=== PATIENT | female | born 1980 | race Hispanic/Latino ===

== ENCOUNTER 2017-09-26 23:01 | Inpatient (IN) | payer MEDICARE ==
[~2017-09-26] VITALS: Ht 154.9 cm; Wt 95.7 kg
[2017-09-26] MEDS ORDERED: ACETAMINOPHEN 325 MG TAB ONE (23:48)
[2017-09-26] MEDS ORDERED: VANCOMYCIN 1GM+NS 250ML 250 ML IV ONE (23:48)
[2017-09-26] MEDS ORDERED: SODIUM CHLORIDE 0.9% 1000ML 3,000 ML IV ONE (23:48)
[2017-09-27 00:09] LABS: BASOPHILS % (AUTO) 0.4 % (0.0-5.0); EOSINOPHILS % (AUTO) 0.2 % (0.0-8.0); HEMATOCRIT 39.4 % (36-48); LYMPHOCYTES % (AUTO) 13.2 % (21.0-51.0); MEAN CORPUSCULAR HEMOGLOBIN 27.4 pg (27.0-33.0); MEAN CORPUSCULAR HGB CONC 34.7 g/dL (32.0-36.0); MEAN CORPUSCULAR VOLUME 78.9 fL (79-99); MONOCYTES % (AUTO) 8.5 % (3.0-13.0); NEUTROPHILS % (AUTO) 77.7 % (40.0-77.0); PLATELET COUNT (AUTO) 270 K/uL (130-400); RED BLOOD CELL COUNT(AUTO) 4.98 MIL/uL (4.00-5.50); RED CELL DISTRIBUTION WIDTH 13.4 % (11.0-15.5); WHITE BLOOD COUNT (AUTO) 9.5 K/uL (4.8-10.8)
[2017-09-27 00:18] LABS: CARBON DIOXIDE 22 mmol/L (21-32); CHLORIDE 99 mmol/L (101-111); GLOMERULAR FILTR. RATE CALC 66 mL/min (>60); GLUCOSE,RANDOM 270 mg/dL (70-105); POTASSIUM 3.1 mmol/L (3.5-5.1); SODIUM SERUM 133 mmol/L (136-145); UREA NITROGEN, BLOOD 8 mg/dL (7-18)
[2017-09-27 00:22] LABS: INR 1.02 (0.85-1.15); PARTIAL THROMBOPLASTIN TIME 27.5 SEC (26.3-35.5); PROTHROMBIN TIME 10.7 SEC (9.6-11.6)
[2017-09-27 00:33] LABS: ALANINE AMINOTRANSFERASE 59 U/L (12-78); ALBUMIN 3.2 g/dL (3.5-5.0); ASPARTATE AMINOTRANSFERASE 31 U/L (10-37); BILIRUBIN,TOTAL 0.6 mg/dL (0.2-1.0); CREATINE KINASE MB < 0.5 ng/mL (0.5-3.6); CREATINE KINASE, TOTAL 32 U/L (21-232); MYOGLOBIN 17 ng/mL (10-92); TOTAL PROTEIN, SERUM 7.3 g/dL (6.0-8.3); TROPONIN I < 0.04 ng/mL (0.00-0.06)
[2017-09-27 01:02] LABS: APPEARANCE,URINE Cloudy (CLEAR); BILIRUBIN,URINE Negative (NEGATIVE); COLOR,URINE Yellow (YELLOW); GLUCOSE, URINE (UA) >=1000 mg/dL (NEGATIVE); KETONES,URINE Trace mg/dL (NEGATIVE); LEUKOCYTE ESTERASE ,URINE Small (NEGATIVE); NITRATE,URINE Negative (NEGATIVE); OCCULT BLOOD,URINE Trace (NEGATIVE); PH,URINE 5.5 (5.0-8.0); PROTEIN,URINE Negative (NEGATIVE); UROBILINOGEN,URINE 0.2 mg/dL (0.2-1.0)
[2017-09-27 01:26] LABS: BACTERIA,URINE Few /HPF (None Seen); MUCUS,URINE Moderate LPF (None Seen); SQUAMOUS EPITHELIAL CELL,UR Moderate /LPF (0-2)
[2017-09-27] MEDS ORDERED: AMPICILLIN SODIUM/SULBACTAM NA 1.5GM VIAL ONE ×4 (02:21→23:47)
[2017-09-27] MEDS ORDERED: DiphenhydrAMINE HCL 50 MG/ML VIAL ONE ×2 (03:11→08:31)
[2017-09-27 04:57] LABS: BASOPHILS % (AUTO) 0.2 % (0.0-5.0); EOSINOPHILS % (AUTO) 0.2 % (0.0-8.0); HEMATOCRIT 33.4 % (36-48); MEAN CORPUSCULAR HEMOGLOBIN 28.4 pg (27.0-33.0); MEAN CORPUSCULAR HGB CONC 35.6 g/dL (32.0-36.0); MEAN CORPUSCULAR VOLUME 79.7 fL (79-99); MONOCYTES % (AUTO) 8.8 % (3.0-13.0); NEUTROPHILS % (AUTO) 72.8 % (40.0-77.0); PLATELET COUNT (AUTO) 211 K/uL (130-400); RED BLOOD CELL COUNT(AUTO) 4.19 MIL/uL (4.00-5.50); RED CELL DISTRIBUTION WIDTH 13.5 % (11.0-15.5); WHITE BLOOD COUNT (AUTO) 7.6 K/uL (4.8-10.8)
[2017-09-27 05:15] LABS: CREATININE 0.8 mg/dL (0.5-1.5)
[2017-09-27] MEDS ORDERED: POTASSIUM CHLORIDE 20 MEQ ERTAB PO ONE ×3 (06:15→10:16)
[2017-09-27] MEDS ORDERED: SODIUM CHLORIDE 0.9% 250 ML IV ONE (08:21)
[2017-09-27] MEDS ORDERED: ACETAMINOPHEN 325 MG TAB ONE ×2 (08:32→16:26)
[2017-09-27] MEDS ORDERED: OSELTAMIVIR PHOSPHATE 75 MG CAP ONE (08:50)
[2017-09-27] MEDS: OSELTAMIVIR PHOSPHATE 75 MG CAP PO SCH ×2 (09:00→21:56)
[2017-09-27] MEDS ORDERED: INSULIN HUMULIN R 100 UNIT/ML 3ML ONE ×2 (11:06→17:22)
[2017-09-27] MEDS ORDERED: IPRATROPIUM/ALBUTEROL SULFATE 3 ML SOLUTION IH ONE ×3 (13:30→23:24)
[2017-09-27 19:15] VITALS: BP 100/59
[2017-09-27] MEDS ORDERED: SODIUM CHLORIDE 0.9% 1000ML 1,000 ML IV SCH (20:15)
[2017-09-27] MEDS ORDERED: FENO48TA15 PO (22:57)
[2017-09-27] MEDS ORDERED: FLUT1DIS3 IH (22:57)
[2017-09-27] MEDS ORDERED: LISI10TA7 PO (22:57)
[2017-09-27] MEDS ORDERED: ALBU8.5H8 IH (22:57)
[2017-09-27] MEDS ORDERED: DULO60CA44 PO (22:57)
[2017-09-27] MEDS ORDERED: METF10004 PO (22:57)
[2017-09-27] MEDS ORDERED: ESOM40CA PO (22:57)
[2017-09-27] MEDS ORDERED: INSU100V12 SQ (22:57)
[2017-09-27 23:10] VITALS: BP 112/76
[2017-09-27] MEDS ORDERED: CLONIDINE HCL 0.1 MG TABLET PO PRN (23:15)
[2017-09-27] MEDS ORDERED: DiphenhydrAMINE HCL 50 MG/ML VIAL IV PRN (23:15)
[2017-09-27] MEDS ORDERED: POTASSIUM CHLORIDE 10% ELIXIR 20 MEQ/15 ML UDCUP PO PRN (23:15)
[2017-09-27] MEDS ORDERED: ZOLPIDEM TARTRATE 5 MG TAB PO PRN (23:15)
[2017-09-27] MEDS ORDERED: POTASSIUM CHLORIDE 20MEQ/100ML 100 ML IV PRN (23:15)
[2017-09-27] MEDS ORDERED: DEXTROSE 50%-WATER 50 ML DISP.SYRIN IV PRN (23:15)
[2017-09-27] MEDS ORDERED: ONDANSETRON HCL 4 MG/2 ML VIAL IVP PRN (23:15)
[2017-09-27] MEDS ORDERED: GLUCAGON 1MG KIT 1 MG ML IM PRN (23:15)
[2017-09-27] MEDS ORDERED: ACETAMINOPHEN 325 MG TAB PO PRN (23:15)
[2017-09-27] MEDS ORDERED: LIDOCAINE HCL-MPF 1% 2ML VIAL IVP PRN (23:15)
[2017-09-27] MEDS ORDERED: GUAIFENESIN SUGAR-FREE 100 MG/5 ML UDCUP PO PRN (23:45)
[2017-09-27] MEDS ORDERED: LACTULOSE 20 GM/30 ML UDCUP PO PRN (23:45)
[2017-09-27] MEDS ORDERED: MAG HYDROX/AL HYDROX/SIMETH ES 30 ML SUSP UDCUP PO PRN (23:45)
[2017-09-27] MEDS ORDERED: IPRATROPIUM/ALBUTEROL SULFATE 3 ML SOLUTION IH PRN (23:45)
[2017-09-27] MEDS ORDERED: NITROGLYCERIN 0.4 MG SL TAB SL PRN (23:45)
[2017-09-28] MEDS: UNASYN 3GM+NS 100ML 100 ML IV SCH ×2 (00:37→08:21)
[2017-09-28 03:30] VITALS: BP 136/72
[2017-09-28 03:57] LABS: HEMATOCRIT 34.8 % (36-48); MEAN CORPUSCULAR HEMOGLOBIN 28.1 pg (27.0-33.0); MEAN CORPUSCULAR HGB CONC 35.2 g/dL (32.0-36.0); MEAN CORPUSCULAR VOLUME 79.8 fL (79-99); PLATELET COUNT (AUTO) 210 K/uL (130-400); RED BLOOD CELL COUNT(AUTO) 4.35 MIL/uL (4.00-5.50); RED CELL DISTRIBUTION WIDTH 13.7 % (11.0-15.5); WHITE BLOOD COUNT (AUTO) 7.1 K/uL (4.8-10.8)
[2017-09-28 04:23] LABS: CREATININE 0.9 mg/dL (0.5-1.5); POTASSIUM 3.4 mmol/L (3.5-5.1)
[2017-09-28] MEDS: IPRATROPIUM/ALBUTEROL SULFATE 3 ML SOLUTION IH SCH ×4 (06:14→23:56)
[2017-09-28 07:00] VITALS: BP 115/73
[2017-09-28] MEDS: OSELTAMIVIR PHOSPHATE 75 MG CAP PO SCH ×2 (08:21→20:49)
[2017-09-28] MEDS: INSULIN HUMULIN R 100 UNIT/ML 3ML SQ SCH ×4 (08:23→21:28)
[2017-09-28] MEDS ORDERED: BENZOCAINE/MENTH/CETYLPYRD CL 1 EACH LOZENGE MM PRN (11:15)
[2017-09-28] MEDS ORDERED: AMPICILLIN SODIUM IV SCH (12:00)
[2017-09-28] MEDS ORDERED: SULBACTAM NA IV SCH (12:00)
[2017-09-28] MEDS ORDERED: DEXTROSE 5% IV SCH (12:00)
[2017-09-28] MEDS ORDERED: WATER IV SCH (12:00)
[2017-09-28 12:41] VITALS: BP 119/78
[2017-09-28 16:00] VITALS: BP 119/70
[2017-09-28] MEDS: WATER IV SCH ×2 (17:12→20:48)
[2017-09-28] MEDS: DEXTROSE 5% IV SCH ×2 (17:12→20:48)
[2017-09-28] MEDS: AMPICILLIN SODIUM IV SCH ×2 (17:12→20:48)
[2017-09-28] MEDS: SULBACTAM NA IV SCH ×2 (17:12→20:48)
[2017-09-28 19:10] VITALS: BP 114/75
[2017-09-28] MEDS: GUAIFENESIN/DEXTROMETHORPHAN 1 EACH TAB.SR.12H PO SCH (20:49)
[2017-09-28 23:10] VITALS: BP 118/69
[2017-09-29] MEDS: DEXTROSE 5% IV SCH ×2 (03:09→08:34)
[2017-09-29] MEDS: SULBACTAM NA IV SCH ×2 (03:09→08:34)
[2017-09-29] MEDS: WATER IV SCH ×2 (03:09→08:34)
[2017-09-29] MEDS: AMPICILLIN SODIUM IV SCH ×2 (03:09→08:34)
[2017-09-29 03:10] VITALS: BP_SYST 106; BP_SYST 123; BP_DIAS 75; BP_DIAS 79
[2017-09-29 03:46] LABS: CREATININE 0.7 mg/dL (0.5-1.5); POTASSIUM 3.3 mmol/L (3.5-5.1)
[2017-09-29 03:47] LABS: HEMATOCRIT 35.8 % (36-48); MEAN CORPUSCULAR HEMOGLOBIN 27.8 pg (27.0-33.0); MEAN CORPUSCULAR HGB CONC 35.2 g/dL (32.0-36.0); MEAN CORPUSCULAR VOLUME 78.8 fL (79-99); NUCLEATED RED BLOOD CELLS 0.1 % (0.0-0.19); PLATELET COUNT (AUTO) 248 K/uL (130-400); RED BLOOD CELL COUNT(AUTO) 4.54 MIL/uL (4.00-5.50); RED CELL DISTRIBUTION WIDTH 13.5 % (11.0-15.5); WHITE BLOOD COUNT (AUTO) 7.2 K/uL (4.8-10.8)
[2017-09-29 04:43] LABS: BAND NEUTROPHILS % (MANUAL) 17 % (0-2); EOSINOPHILS % (MANUAL) 1 % (1-6); LYMPHOCYTES % (MANUAL) 17 % (22-44); MAN.DIFF COMMENT-IMPRESSION MANUAL DIFFERENTIAL; MONOCYTES % (MANUAL) 6 % (2-9); SEGMENTED NEUTROPHILS % 59 % (40-70)
[2017-09-29 04:44] LABS: PLATELET MORPHOLOGY COMMENT ADEQUATE
[2017-09-29] MEDS: IPRATROPIUM/ALBUTEROL SULFATE 3 ML SOLUTION IH SCH ×3 (06:00→11:08)
[2017-09-29] MEDS: INSULIN HUMULIN R 100 UNIT/ML 3ML SQ SCH ×2 (06:51→12:47)
[2017-09-29 08:00] VITALS: BP 110/68
[2017-09-29] MEDS: GUAIFENESIN/DEXTROMETHORPHAN 1 EACH TAB.SR.12H PO SCH (08:34)
[2017-09-29] MEDS: OSELTAMIVIR PHOSPHATE 75 MG CAP PO SCH (08:34)
[2017-09-29] MEDS: POTASSIUM CHLORIDE 20 MEQ ERTAB PO PRN ×3 (10:31→14:48)
[2017-09-29] MEDS ORDERED: COMPOUND IV MISC 1 EACH IVSOLN MISC PRN (11:45)
[2017-09-29 12:00] VITALS: BP 130/85
[2017-09-29] MEDS ORDERED: LEVOFLOXACIN 500 MG TABLET PO SCH (16:00)
[2017-09-29] MEDS ORDERED: MEROPENEM 1GM IVPB PREMIXED 1 GM IV SCH (16:00)
[2017-09-29] MEDS ORDERED: FLUCONAZOLE 100 MG TAB PO SCH (16:00)
[2017-09-29] MEDS ORDERED: AMPICILLIN IV SCH (18:00)
[2017-09-29] MEDS ORDERED: SULBACTAM IV SCH (18:00)
== END 2017-09-29 16:45 | disposition home or self-care (01) | DRG 872 ==
LOC: EDH 23:01 → EDHIP 23:28 → UNDOADMIN 23:47 → EDHIP 09-27 00:10 → 3BH 09-27 19:33
PROVIDERS: ADMIT Family Medicine; ATTEND Family Medicine
DX: A41.9 Sepsis, unspecified organism (principal); E11.65 Type 2 diabetes mellitus with hyperglycemia; J10.1 Influenza due to other identified influenza virus with other respiratory manifestations; J20.9 Acute bronchitis, unspecified; E78.5 Hyperlipidemia, unspecified; G89.4 Chronic pain syndrome; I10 Essential (primary) hypertension; Z83.3 Family history of diabetes mellitus; Z88.5 Allergy status to narcotic agent; Z91.010 Allergy to peanuts
CPT/HCPCS: 36415; 71045; 80048; 80053; 81001; 81025; 82550; 82553; 82948; 83605; 83874; 84484; 85025; 85027; 85610; 85730; 87040; 87088; 87804; 93005; 94640; 94664; J0295; J1200; J1815; J2405; J3370; J7030; J7060

== ENCOUNTER → 2018-11-02 | Outpatient (CLI) | payer MEDICARE ==
[~2018-11-02] VITALS: Ht 161.3 cm; Wt 94.1 kg
[~2018-11-02] MED LIST: ALBU8.5H8 IH; ALPR0.5T PO; ASPI-555 PO; DULO60CA44 PO; ESOM40CA PO; FENO48TA15 PO; FLUT1DIS3 IH; HYDR-4030 PO; HYDR-4453 PO; INSREG SQ; INSU100V12 SQ; ISOS60TA4 PO; LISI10TA7 PO; METF-446 PO; METO100T14 PO; PREG75 PO; VENL-63 PO
[2018-11-02 12:12] VITALS: BP 154/78
[2018-11-02 12:23] LABS: BASOPHILS % (AUTO) 0.3 % (0.0-5.0); LYMPHOCYTES % (AUTO) 19.3 % (21.0-51.0); MEAN CORPUSCULAR HEMOGLOBIN 26.1 pg (27.0-33.0); MEAN CORPUSCULAR HGB CONC 33.3 g/dL (32.0-36.0); MEAN CORPUSCULAR VOLUME 78.3 fL (79-99); MONOCYTES % (AUTO) 4.9 % (3.0-13.0); NEUTROPHILS % (AUTO) 74.5 % (40.0-77.0); NUCLEATED RED BLOOD CELLS 0.1 % (0.0-0.19); PLATELET COUNT (AUTO) 302 K/uL (130-400); RED BLOOD CELL COUNT(AUTO) 5.36 MIL/uL (4.00-5.50); RED CELL DISTRIBUTION WIDTH 13.8 % (11.0-15.5); WHITE BLOOD COUNT (AUTO) 10.3 K/uL (4.8-10.8)
[2018-11-02 12:36] LABS: CREATININE 0.7 mg/dL (0.5-1.5); POTASSIUM 3.6 mmol/L (3.5-5.1)
[2018-11-02 12:37] LABS: APPEARANCE,URINE Clear (CLEAR); BILIRUBIN,URINE Negative (NEGATIVE); COLOR,URINE Yellow (YELLOW); GLUCOSE, URINE (UA) >=1000 mg/dL (NEGATIVE); KETONES,URINE 15 mg/dL (NEGATIVE); LEUKOCYTE ESTERASE ,URINE Negative (NEGATIVE); NITRATE,URINE Negative (NEGATIVE); OCCULT BLOOD,URINE Nonhemolyzed Trace (NEGATIVE); PROTEIN,URINE Negative (NEGATIVE); UROBILINOGEN,URINE 0.2 mg/dL (0.2-1.0)
[2018-11-02 12:38] LABS: INR 0.9 (0.85-1.15); PARTIAL THROMBOPLASTIN TIME 28.2 SEC (26.3-35.5); PROTHROMBIN TIME 9.5 SEC (9.6-11.6)
--- NOTE | 2018-11-02 12:57 | NUR ---
NOTE PT STATES SHE IS GOING TO BE ADMITED TO [facility] TODAY FOR I&D TO RIGHT ARM PIT. ASSESSED AREA , REDDNESS WAS NOTED NO OPEN WOUND. PATIENT DID STATE SHE HAD FEVER OVER THE WEEKEND AND HAS ALOT OF PAIN. SHE HAS DEVELOPED THIS ABCESS IN THE PAST. SHE RECIEVED VANCOMYCIN INFUSION BY DR BOONE LAST WEEK FOR THIS DEVELOPING INTERNAL ABCESS, BUT ACCORDING TO DR SAGASTUME IT NEEDS TO TAKEN TO SURGERY SO THAT IS THE REASON HE IS ADMITTING HER TODAY IN [facility] [place],ACCORDING TO PATIENT SHE SHOULD BE DISCHARGED BY MONDAY. WILL NOTIFY DR COLIN OF THIS SITUATION.
[2018-11-02 13:17] LABS: BACTERIA,URINE Rare /HPF (None Seen); RBC,URINE 0-1 /HPF (0-1); SQUAMOUS EPITHELIAL CELL,UR Few /HPF (0-2); YEAST,URINE BUDDING Few /HPF (None Seen)
--- NOTE | 2018-11-02 14:15 | NUR ---
NOTE SPOKE TO GENIE REGARDING PATIENT SITUATION. SHE IS TO BE CANCELLED FOR PROCEDURE. SHE WILL HAVE OFFICE SCHEDULE HER FOLLOW UP IN OFFICE FOR ANOTHER SCHEDULE DATE FOR PROCEDURE
== END ==
LOC: DAH 10:00 → EDSTATUS 11:00
PROVIDERS: ATTEND Internal Medicine Cardiovascular Disease
DX: Z01.818 Encounter for other preprocedural examination (principal); R94.39 Abnormal result of other cardiovascular function study
CPT/HCPCS: 36415; 71045; 80048; 81001; 84703; 85025; 85610; 85730; 93005

== ENCOUNTER 2018-12-25 06:21 | Day surgery (SDC) | payer MEDICARE ==
[2018-12-21 15:45] VITALS: BP 140/77
[2018-12-21 16:03] LABS: BASOPHILS % (AUTO) 0.4 % (0.0-5.0); EOSINOPHILS % (AUTO) 1.5 % (0.0-8.0); HEMATOCRIT 40.3 % (36-48); LYMPHOCYTES % (AUTO) 22.6 % (21.0-51.0); MEAN CORPUSCULAR HEMOGLOBIN 26.4 pg (27.0-33.0); MEAN CORPUSCULAR HGB CONC 33.6 g/dL (32.0-36.0); MEAN CORPUSCULAR VOLUME 78.7 fL (79-99); MONOCYTES % (AUTO) 5.6 % (3.0-13.0); NEUTROPHILS % (AUTO) 69.9 % (40.0-77.0); PLATELET COUNT (AUTO) 333 K/uL (130-400); RED BLOOD CELL COUNT(AUTO) 5.12 MIL/uL (4.00-5.50); RED CELL DISTRIBUTION WIDTH 14.5 % (11.0-15.5); WHITE BLOOD COUNT (AUTO) 9.9 K/uL (4.8-10.8)
[2018-12-21 16:04] LABS: APPEARANCE,URINE Clear (CLEAR); BILIRUBIN,URINE Negative (NEGATIVE); COLOR,URINE Yellow (YELLOW); GLUCOSE, URINE (UA) 500 mg/dL (NEGATIVE); KETONES,URINE Trace mg/dL (NEGATIVE); LEUKOCYTE ESTERASE ,URINE Negative (NEGATIVE); NITRATE,URINE Negative (NEGATIVE); OCCULT BLOOD,URINE Negative (NEGATIVE); PROTEIN,URINE Negative (NEGATIVE); UROBILINOGEN,URINE 0.2 mg/dL (0.2-1.0)
[2018-12-21 16:13] LABS: BACTERIA,URINE Few /HPF (None Seen); RBC,URINE None Seen /HPF (0-1); SQUAMOUS EPITHELIAL CELL,UR 0-2 /HPF (0-2); TRICHOMONAS,URINE Few /LPF (None Seen); WBC,URINE 0-1 /HPF (0-1); YEAST,URINE BUDDING Few /HPF (None Seen)
[2018-12-21 16:19] LABS: CREATININE 0.8 mg/dL (0.5-1.5); POTASSIUM 3.8 mmol/L (3.5-5.1)
[2018-12-21 16:20] LABS: INR 0.95 (0.85-1.15); PARTIAL THROMBOPLASTIN TIME 27.8 SEC (26.3-35.5)
--- NOTE | 2018-12-24 14:17 | NUR ---
CALLED GENIE BLANKENSHIP [facility] TO ADVISED ABOUT THE URINE WITH FEW BACTERIA, YEAST BUDDING , TRICHOMONAS. GENIE BLANKENSHIP ORDERD A REPEAT FOR UA AND CULTURE THE DAY OF PROCEDURE AND SHE ASKED ME TO SEND UA RESULTS TO THE OFFICE TO BE REVIEWED. FAXED TO OFFICE CONFIRMED BY CHYNA COLIN OFFICE.
[~2018-12-25] VITALS: Ht 160 cm; Wt 94.5 kg
[~2018-12-25 06:21] MED LIST changes: -ALBU8.5H8 IH; -ALPR0.5T PO; +BUME1TAB12 PO; +BUPR300T54 PO; +DIPH25CA7 PO; +DIPHEN/ATROPINE PO; -DULO60CA44 PO; -ESOM40CA PO; -FENO48TA15 PO; -HYDR-4030 PO; -HYDR-4453 PO; +HYDROMORPHINE PO; -INSREG SQ; +INSU100I21 SQ; -INSU100V12 SQ; -LISI10TA7 PO; +LISI40TA4 PO; -METO100T14 PO; +METO50TA18 PO; +NITR0.4T50 SL; +ONDA4TAB10 PO; +ROSU10TA27 PO; +SODIUM CHLORIDE 0.9% 500ML 500 ML IV SCH; +TRAZ150T79 PO; +[UNRECOGNIZED DRUG - OTHER] PO
[2018-12-25 06:39] VITALS: BP 123/75
[2018-12-25] MEDS ORDERED: SODIUM CHLORIDE 0.9% 1000ML 1,000 ML IV ONE (07:19)
[2018-12-25 07:47] LABS: APPEARANCE,URINE Clear (CLEAR); BILIRUBIN,URINE Negative (NEGATIVE); GLUCOSE, URINE (UA) Negative (NEGATIVE); KETONES,URINE Negative (NEGATIVE); LEUKOCYTE ESTERASE ,URINE Negative (NEGATIVE); NITRATE,URINE Negative (NEGATIVE); OCCULT BLOOD,URINE Negative (NEGATIVE); PROTEIN,URINE Trace mg/dL (NEGATIVE)
[2018-12-25 07:49] LABS: COLOR,URINE YELLOW (YELLOW)
[2018-12-25 08:05] LABS: BACTERIA,URINE Rare /HPF (None Seen); RBC,URINE None Seen /HPF (0-1); WBC,URINE 0-1 /HPF (0-1); YEAST,URINE BUDDING Few /HPF (None Seen)
[2018-12-25 12:00] VITALS: BP 115/70
[2018-12-25 16:00] VITALS: BP 114/69
[2018-12-25] MEDS ORDERED: NITROGLYCERIN 5 MG/ML 10 ML VIAL IV ONE (16:21)
[2018-12-25] MEDS ORDERED: IOHEXOL 350 MG/ML 100ML INFUS..BTL IV ONE (16:21)
[2018-12-25] MEDS ORDERED: IOHEXOL-350 50ML VIAL IV ONE (16:21)
[2018-12-25] MEDS ORDERED: IOHEXOL-350 75 ML VIAL IV ONE (16:22)
[2018-12-25] MEDS ORDERED: LIDOCAINE HCL 2% 20ML ONE (16:22)
[2018-12-25] MEDS ORDERED: MIDAZOLAM HCL 1 MG/ML 2ML VIAL ONE ×2 (17:14→17:36)
[2018-12-25] MEDS ORDERED: LIDOCAINE HCL 2% VISCOUS 15 ML UDCUP ONE (18:02)
[2018-12-25] MEDS ORDERED: MAG HYDROX/AL HYDROX/SIMETH ES 30 ML SUSP UDCUP ONE (18:02)
[2018-12-25] MEDS ORDERED: SODIUM CHLORIDE 0.9% 1000ML 1,000 ML IV SCH (18:17)
[2018-12-25] MEDS ORDERED: GLUCAGON 1MG KIT 1 MG ML IM PRN (18:30)
[2018-12-25] MEDS ORDERED: DEXTROSE 50%-WATER 50 ML DISP.SYRIN IV PRN (18:30)
--- NOTE | 2018-12-25 18:45 | NUR ---
RECEIVED FROM REHAB AIDE VIA BED ACCOMPANIED BY Shan BOSTON, RN AND Sean RAMON RN. AAOX3, RESP.'S EVEN AND UNLABORED. DENIES ANY CURRENT SOB, DENIES ANY CURRENT PAIN. RIGHT GROIN WITH LIGHT DRSG IN PLACE, D/I; AREA SOFT, NO ECCHYMOSIS OR HEMATOMA NOTED. FEET WARM, PP'S (+) BILATERALLY. INSTRUCTED ON STRICT BR, VERBALIZED UNDERSTANDING. BED LOW, SIDE RAILS UP X3. CALL LIGHT WITHIN REACH, VERBALIZED ABILITY TO USE.
[2018-12-25] MEDS ORDERED: INSULIN HUMULIN R 100 UNIT/ML 3ML SQ SCH (21:00)
== END 2018-12-25 22:09 | disposition home or self-care (01) ==
LOC: DAH 06:21
PROVIDERS: ATTEND Internal Medicine Cardiovascular Disease
DX: I25.118 Atherosclerotic heart disease of native coronary artery with other forms of angina pectoris (principal); E78.2 Mixed hyperlipidemia; E11.9 Type 2 diabetes mellitus without complications; I10 Essential (primary) hypertension; J45.909 Unspecified asthma, uncomplicated; R06.02 Shortness of breath; Z79.84 Long term (current) use of oral hypoglycemic drugs; Z79.899 Other long term (current) drug therapy; Z79.4 Long term (current) use of insulin; Z79.01 Long term (current) use of anticoagulants; G47.33 Obstructive sleep apnea (adult) (pediatric); E66.01 Morbid (severe) obesity due to excess calories; F41.9 Anxiety disorder, unspecified; Z98.890 Other specified postprocedural states; Z82.49 Family history of ischemic heart disease and other diseases of the circulatory system; Z68.38 Body mass index [BMI] 38.0-38.9, adult
CPT/HCPCS: 36415; 71045; 80048; 81001 ×2; 82948 ×2; 84703; 85025; 85610; 85730; 87088; 93005; 93458; A4606; C1894; J1644; J2250 ×2; J3490 ×2; J7030; Q9965; Q9967 ×2; 99156; 99157

== ENCOUNTER 2021-12-27 18:07 | Inpatient (IN) | payer MEDICARE ==
[~2021-12-27] VITALS: Ht 160 cm; Wt 101.2 kg
[~2021-12-27 18:07] MED LIST changes: -ASPI-555 PO; +ASPI-556 PO; -BUME1TAB12 PO; +BUME1TAB6 PO; +BUPR-317 PO; -BUPR300T54 PO; +DIPH25CA53 PO; -DIPH25CA7 PO; -ISOS60TA4 PO; +ISOS60TA77 PO; -LISI40TA4 PO; +LISI40TA9 PO; -ROSU10TA27 PO; +ROSU10TA28 PO; -SODIUM CHLORIDE 0.9% 500ML 500 ML IV SCH
[2021-12-27 19:41] LABS: BASOPHILS % (AUTO) 0.3 % (0.0-5.0); EOSINOPHILS % (AUTO) 1.2 % (0.0-8.0); HEMATOCRIT 39.7 % (36-48); MEAN CORPUSCULAR HEMOGLOBIN 23.8 pg (27.0-33.0); MEAN CORPUSCULAR HGB CONC 31.5 g/dL (32.0-36.0); MEAN CORPUSCULAR VOLUME 75.6 fL (79-99); MONOCYTES % (AUTO) 5.4 % (3.0-13.0); NEUTROPHILS % (AUTO) 72.7 % (40.0-77.0); PLATELET COUNT (AUTO) 388 K/uL (130-400); RED BLOOD CELL COUNT(AUTO) 5.25 MIL/uL (4.00-5.50); RED CELL DISTRIBUTION WIDTH 14.6 % (11.0-15.5); WHITE BLOOD COUNT (AUTO) 12.7 K/uL (4.8-10.8)
[2021-12-27 19:56] LABS: INR 0.96 (0.85-1.15); PROTHROMBIN TIME 10.5 SEC (9.6-11.6)
[2021-12-27 19:57] LABS: CREATININE 0.7 mg/dL (0.5-1.5); PARTIAL THROMBOPLASTIN TIME 25.8 SEC (26.3-35.5); POTASSIUM 3.9 mmol/L (3.5-5.1)
[2021-12-27 20:01] LABS: ALBUMIN 3.8 g/dL (3.5-5.0); BILIRUBIN,TOTAL 0.4 mg/dL (0.2-1.0); TOTAL PROTEIN, SERUM 8.1 g/dL (6.0-8.3)
[2021-12-27] MEDS: 0.9%NACL 1000ML 1,000 ML IV SCH (20:20)
[2021-12-27] MEDS: CEFAZOLIN SODIUM 1 GM VIAL IVP SCH ×2 (20:21→21:39)
[2021-12-27] MEDS ORDERED: DiphenhydrAMINE HCL 50 MG/ML VIAL ONE (21:25)
[2021-12-27] MEDS: DiphenhydrAMINE HCL 50 MG/ML VIAL IV SCH (21:38)
[2021-12-27] MEDS ORDERED: FAMO-136 PO (22:28)
[2021-12-27] MEDS ORDERED: ROSU10TA28 PO (22:28)
[2021-12-27] MEDS ORDERED: LOSA100T58 PO (22:28)
[2021-12-27 23:15] VITALS: BP 141/74
[2021-12-28] MEDS: HYDROMORPHONE 1 MG INJ IVP PRN ×5 (00:11→20:54)
[2021-12-28] MEDS: ONDANSETRON 4MG INJ IVP PRN ×4 (00:11→20:53)
[2021-12-28 04:00] VITALS: BP 115/65
[2021-12-28] MEDS: CEFAZOLIN SODIUM 1 GM VIAL IVP SCH ×3 (06:21→17:53)
[2021-12-28] MEDS: DiphenhydrAMINE HCL 50 MG/ML VIAL IV SCH ×3 (06:21→17:57)
[2021-12-28 07:30] VITALS: BP 121/68
[2021-12-28 11:00] VITALS: BP 149/78
[2021-12-28] MEDS: 0.9%NACL 1000ML 1,000 ML IV SCH (15:05)
[2021-12-28 16:00] VITALS: BP 132/67
[2021-12-28 20:00] VITALS: BP 144/67
[2021-12-29] VITALS (8 sets, daily range): BP systolic 76–157; BP diastolic 40–77
[2021-12-29] MEDS: HYDROMORPHONE 1 MG INJ IVP PRN ×5 (02:04→21:34)
[2021-12-29] MEDS: ONDANSETRON 4MG INJ IVP PRN ×2 (02:04→08:02)
[2021-12-29] MEDS: CEFAZOLIN SODIUM 1 GM VIAL IVP SCH ×3 (02:13→18:02)
[2021-12-29] MEDS: DiphenhydrAMINE HCL 50 MG/ML VIAL IV SCH ×3 (02:13→18:15)
[2021-12-29] MEDS: 0.9%NACL 1000ML 1,000 ML IV SCH ×3 (08:11→20:30)
[2021-12-29] MEDS ORDERED: DICY10CA13 PO (17:10)
[2021-12-29] MEDS ORDERED: FURO20TA4 PO (17:10)
[2021-12-29] MEDS ORDERED: INSU500I SQ (17:12)
[2021-12-29] MEDS ORDERED: FLUT1AER IH (17:12)
[2021-12-29] MEDS ORDERED: INSULIN HUMULIN R 100 UNIT/ML 3ML ONE (17:59)
[2021-12-29] MEDS ORDERED: PHARMACY COMMUNICATION MISC SCH (21:30)
[2021-12-29] MEDS: INSULIN HUMULIN R 100 UNIT/ML 3ML SQ SCH (21:33)
[2021-12-29] MEDS: DICYCLOMINE HCL 20 MG TAB PO SCH (21:39)
[2021-12-29] MEDS: BREO ELLIPTA 100-25 MCG INH IH SCH (21:39)
[2021-12-30 00:46] VITALS: BP 117/70
[2021-12-30] MEDS: HYDROMORPHONE 1 MG INJ IVP PRN ×5 (02:15→20:47)
[2021-12-30] MEDS: CEFAZOLIN SODIUM 1 GM VIAL IVP SCH ×3 (02:51→18:12)
[2021-12-30] MEDS: DiphenhydrAMINE HCL 50 MG/ML VIAL IV SCH ×3 (02:51→18:46)
[2021-12-30 04:00] VITALS: BP 112/61
[2021-12-30] MEDS: 0.9%NACL 1000ML 1,000 ML IV SCH ×2 (06:32→17:14)
[2021-12-30] MEDS: INSULIN HUMULIN R 100 UNIT/ML 3ML SQ SCH ×4 (06:53→21:00)
[2021-12-30] MEDS ORDERED: INSULIN REGULAR HUMAN SQ SCH (08:00)
[2021-12-30] MEDS ORDERED: [UNRECOGNIZED DRUG - OTHER] SQ SCH (08:00)
[2021-12-30 08:30] VITALS: BP 119/61
[2021-12-30] MEDS: ROSUVASTATIN 10MG PO SCH (09:00)
[2021-12-30] MEDS: FAMOTIDINE 20MG TAB PO SCH (09:06)
[2021-12-30] MEDS: FUROSEMIDE 20 MG TABLET PO SCH (09:06)
[2021-12-30] MEDS: DICYCLOMINE HCL 20 MG TAB PO SCH ×2 (09:06→20:44)
[2021-12-30] MEDS: LOSARTAN 100 MG TABLET PO SCH (09:06)
[2021-12-30 12:04] VITALS: BP 114/71
[2021-12-30 16:34] VITALS: BP 105/59
[2021-12-30 20:00] VITALS: BP 135/82
[2021-12-30] MEDS: BREO ELLIPTA 100-25 MCG INH IH SCH (20:44)
[2021-12-31] VITALS: BP 121/69
[2021-12-31] MEDS: HYDROMORPHONE 1 MG INJ IVP PRN ×4 (01:28→16:26)
[2021-12-31] MEDS: DiphenhydrAMINE HCL 50 MG/ML VIAL IV SCH ×3 (02:25→18:46)
[2021-12-31] MEDS: 0.9%NACL 1000ML 1,000 ML IV SCH ×3 (02:25→23:10)
[2021-12-31] MEDS: CEFAZOLIN SODIUM 1 GM VIAL IVP SCH ×3 (02:25→18:36)
[2021-12-31 04:00] VITALS: BP 107/65
[2021-12-31] MEDS: INSULIN HUMULIN R 100 UNIT/ML 3ML SQ SCH ×5 (05:27→21:42)
[2021-12-31] MEDS: ROSUVASTATIN 10MG PO SCH (09:00)
[2021-12-31] MEDS: LOSARTAN 100 MG TABLET PO SCH (09:00)
[2021-12-31] MEDS: FUROSEMIDE 20 MG TABLET PO SCH (09:14)
[2021-12-31] MEDS: FAMOTIDINE 20MG TAB PO SCH (09:14)
[2021-12-31] MEDS: DICYCLOMINE HCL 20 MG TAB PO SCH ×2 (09:15→20:42)
[2021-12-31 12:00] VITALS: BP 126/82
[2021-12-31 12:21] LABS: HEMATOCRIT 36.1 % (36-48); MEAN CORPUSCULAR HEMOGLOBIN 23.9 pg (27.0-33.0); MEAN CORPUSCULAR HGB CONC 31.6 g/dL (32.0-36.0); MEAN CORPUSCULAR VOLUME 75.7 fL (79-99); PLATELET COUNT (AUTO) 291 K/uL (130-400); RED BLOOD CELL COUNT(AUTO) 4.77 MIL/uL (4.00-5.50); RED CELL DISTRIBUTION WIDTH 14.7 % (11.0-15.5); WHITE BLOOD COUNT (AUTO) 10.2 K/uL (4.8-10.8)
[2021-12-31 13:10] LABS: EOSINOPHILS % (MANUAL) 3 % (1-6); LYMPHOCYTES % (MANUAL) 14 % (22-44); MAN.DIFF COMMENT-IMPRESSION MANUAL DIFFERENTIAL; MONOCYTES % (MANUAL) 3 % (2-9); SEGMENTED NEUTROPHILS % 80 % (40-70)
[2021-12-31 13:12] LABS: PLATELET MORPHOLOGY COMMENT ADEQUATE
[2021-12-31 16:00] VITALS: BP 129/78
[2021-12-31 20:00] VITALS: BP 137/84
[2021-12-31] MEDS: BREO ELLIPTA 100-25 MCG INH IH SCH (21:31)
[2022-01-01] VITALS (25 sets, daily range): BP systolic 98–132; BP diastolic 51–75
[2022-01-01] MEDS: HYDROMORPHONE 1 MG INJ IVP PRN ×4 (00:18→16:40)
[2022-01-01] MEDS: CEFAZOLIN SODIUM 1 GM VIAL IVP SCH ×3 (02:42→18:03)
[2022-01-01] MEDS: DiphenhydrAMINE HCL 50 MG/ML VIAL IV SCH ×3 (02:57→17:25)
[2022-01-01] MEDS: INSULIN HUMULIN R 100 UNIT/ML 3ML SQ SCH ×4 (06:53→21:58)
[2022-01-01] MEDS: ROSUVASTATIN 10MG PO SCH (09:00)
[2022-01-01] MEDS: FUROSEMIDE 20 MG TABLET PO SCH (09:01)
[2022-01-01] MEDS: DICYCLOMINE HCL 20 MG TAB PO SCH ×2 (09:01→21:22)
[2022-01-01] MEDS: FAMOTIDINE 20MG TAB PO SCH (09:01)
[2022-01-01] MEDS: LOSARTAN 100 MG TABLET PO SCH (09:01)
[2022-01-01] MEDS: 0.9%NACL 1000ML 1,000 ML IV SCH ×2 (09:47→17:30)
[2022-01-01] MEDS ORDERED: PROPOFOL 10 MG/ML 20ML VIAL IV ONE (11:38)
[2022-01-01] MEDS ORDERED: FENTANYL CITRATE PF 50 MCG/1 ML 2ML VIAL ONE ×4 (11:38→14:28)
[2022-01-01] MEDS ORDERED: MIDAZOLAM HCL 1 MG/ML 2ML VIAL ONE (11:39)
[2022-01-01] MEDS ORDERED: SUCCINYLCHOLINE 200MG/10ML SYR ONE (12:05)
[2022-01-01] MEDS ORDERED: ROCURONIUM 10MG/1ML SYR 10 MG/ML ML ONE (12:05)
[2022-01-01] MEDS ORDERED: ONDANSETRON 4MG INJ ONE (12:05)
[2022-01-01] MEDS ORDERED: MEPERIDINE-PF 25 MG/ML SYG ONE (14:13)
[2022-01-01] MEDS: ONDANSETRON 4MG INJ IVP PRN ×2 (14:27→14:28)
[2022-01-01] MEDS: BREO ELLIPTA 100-25 MCG INH IH SCH (21:23)
[2022-01-01] MEDS ORDERED: HYDROMORPHONE 1 MG INJ ONE (21:33)
[2022-01-02] VITALS: BP 142/71
[2022-01-02] MEDS: HYDROMORPHONE 1 MG INJ IVP PRN ×6 (01:42→23:17)
[2022-01-02] MEDS: CEFAZOLIN SODIUM 1 GM VIAL IVP SCH ×3 (01:43→19:31)
[2022-01-02] MEDS: DiphenhydrAMINE HCL 50 MG/ML VIAL IV SCH ×3 (01:43→18:53)
[2022-01-02] MEDS: 0.9%NACL 1000ML 1,000 ML IV SCH ×2 (04:35→14:59)
[2022-01-02 05:02] VITALS: BP 125/55
[2022-01-02] MEDS: INSULIN HUMULIN R 100 UNIT/ML 3ML SQ SCH ×4 (06:48→21:32)
[2022-01-02 08:00] VITALS: BP 118/50
[2022-01-02] MEDS: DICYCLOMINE HCL 20 MG TAB PO SCH ×2 (10:14→20:05)
[2022-01-02] MEDS: LOSARTAN 100 MG TABLET PO SCH (10:15)
[2022-01-02] MEDS: FAMOTIDINE 20MG TAB PO SCH (10:15)
[2022-01-02] MEDS: FUROSEMIDE 20 MG TABLET PO SCH (10:15)
[2022-01-02] MEDS: ROSUVASTATIN 10MG PO SCH (10:20)
[2022-01-02 11:55] VITALS: BP 102/50
[2022-01-02 16:00] VITALS: BP 136/79
[2022-01-02 20:00] VITALS: BP 121/63
[2022-01-02] MEDS: BREO ELLIPTA 100-25 MCG INH IH SCH (20:15)
[2022-01-03] VITALS: BP_SYST 116; BP_SYST 127; BP_DIAS 68; BP_DIAS 72; BP_DIAS 73
[2022-01-03] MEDS: CEFAZOLIN SODIUM 1 GM VIAL IVP SCH ×3 (02:50→19:02)
[2022-01-03] MEDS: DiphenhydrAMINE HCL 50 MG/ML VIAL IV SCH ×4 (02:50→21:48)
[2022-01-03] MEDS: HYDROMORPHONE 1 MG INJ IVP PRN ×5 (03:47→21:49)
[2022-01-03 04:00] VITALS: BP_SYST 113; BP_SYST 121; BP_SYST 123; BP_DIAS 63; BP_DIAS 65; BP_DIAS 73
[2022-01-03] MEDS: INSULIN HUMULIN R 100 UNIT/ML 3ML SQ SCH ×4 (06:33→21:45)
[2022-01-03 07:30] VITALS: BP 114/66
[2022-01-03] MEDS: FUROSEMIDE 20 MG TABLET PO SCH (08:19)
[2022-01-03] MEDS: DICYCLOMINE HCL 20 MG TAB PO SCH ×2 (08:19→21:39)
[2022-01-03] MEDS: FAMOTIDINE 20MG TAB PO SCH (08:19)
[2022-01-03] MEDS: LOSARTAN 100 MG TABLET PO SCH (08:19)
[2022-01-03 11:00] VITALS: BP 110/73
[2022-01-03 16:00] VITALS: BP 126/39
[2022-01-03] MEDS: 0.9%NACL 1000ML 1,000 ML IV SCH ×2 (19:04→21:38)
[2022-01-03 19:30] VITALS: BP 139/78
[2022-01-03] MEDS: BREO ELLIPTA 100-25 MCG INH IH SCH (21:00)
[2022-01-03] MEDS: ATORVASTATIN 40 MG TABLET PO SCH (21:39)
[2022-01-04] VITALS: BP 135/81
[2022-01-04] MEDS: HYDROMORPHONE 1 MG INJ IVP PRN ×5 (02:11→20:38)
[2022-01-04] MEDS: CEFAZOLIN SODIUM 1 GM VIAL IVP SCH ×3 (02:11→19:07)
[2022-01-04 04:00] VITALS: BP 112/63
[2022-01-04] MEDS: DiphenhydrAMINE HCL 50 MG/ML VIAL IV SCH ×3 (05:46→18:21)
[2022-01-04] MEDS: 0.9%NACL 1000ML 1,000 ML IV SCH ×2 (05:49→16:55)
[2022-01-04] MEDS: INSULIN HUMULIN R 100 UNIT/ML 3ML SQ SCH ×4 (06:47→22:24)
[2022-01-04] MEDS: FUROSEMIDE 20 MG TABLET PO SCH (08:01)
[2022-01-04] MEDS: LOSARTAN 100 MG TABLET PO SCH (08:01)
[2022-01-04] MEDS: DICYCLOMINE HCL 20 MG TAB PO SCH ×2 (08:01→20:37)
[2022-01-04] MEDS: FAMOTIDINE 20MG TAB PO SCH (08:01)
[2022-01-04 08:30] VITALS: BP 101/54
[2022-01-04 11:58] LABS: BASOPHILS % (AUTO) 0.2 % (0.0-5.0); EOSINOPHILS % (AUTO) 1.8 % (0.0-8.0); HEMATOCRIT 37.1 % (36-48); LYMPHOCYTES % (AUTO) 14.1 % (21.0-51.0); MEAN CORPUSCULAR HEMOGLOBIN 24.4 pg (27.0-33.0); MEAN CORPUSCULAR HGB CONC 31.3 g/dL (32.0-36.0); MEAN CORPUSCULAR VOLUME 78.1 fL (79-99); MONOCYTES % (AUTO) 5.2 % (3.0-13.0); NEUTROPHILS % (AUTO) 78.4 % (40.0-77.0); PLATELET COUNT (AUTO) 299 K/uL (130-400); RED BLOOD CELL COUNT(AUTO) 4.75 MIL/uL (4.00-5.50); RED CELL DISTRIBUTION WIDTH 14.9 % (11.0-15.5); WHITE BLOOD COUNT (AUTO) 9.2 K/uL (4.8-10.8)
[2022-01-04 12:01] VITALS: BP 124/68
[2022-01-04 18:11] VITALS: BP 120/58
[2022-01-04] MEDS: ATORVASTATIN 40 MG TABLET PO SCH (20:37)
[2022-01-04] MEDS: BREO ELLIPTA 100-25 MCG INH IH SCH (20:54)
[2022-01-05 00:22] VITALS: BP 122/74
[2022-01-05] MEDS: HYDROMORPHONE 1 MG INJ IVP PRN ×4 (00:47→13:02)
[2022-01-05] MEDS: DiphenhydrAMINE HCL 50 MG/ML VIAL IV SCH ×2 (01:56→10:24)
[2022-01-05] MEDS: CEFAZOLIN SODIUM 1 GM VIAL IVP SCH ×2 (02:26→10:50)
[2022-01-05] MEDS: 0.9%NACL 1000ML 1,000 ML IV SCH (02:26)
[2022-01-05 04:00] VITALS: BP 110/58
[2022-01-05] MEDS: INSULIN HUMULIN R 100 UNIT/ML 3ML SQ SCH ×2 (06:46→12:16)
[2022-01-05 07:31] VITALS: BP 103/56
[2022-01-05] MEDS: LOSARTAN 100 MG TABLET PO SCH (09:15)
[2022-01-05] MEDS: DICYCLOMINE HCL 20 MG TAB PO SCH (09:16)
[2022-01-05] MEDS: FAMOTIDINE 20MG TAB PO SCH (09:16)
[2022-01-05] MEDS: FUROSEMIDE 20 MG TABLET PO SCH (09:17)
[2022-01-05 11:19] VITALS: BP 112/60
== END 2022-01-05 13:45 | disposition home health service (06) | DRG 571 ==
LOC: EDH 18:07 → EDHIP 18:08 → 3DH 23:20
PROVIDERS: ADMIT Internal Medicine Hematology & Oncology; ATTEND Internal Medicine Hematology & Oncology
PROC: 0JBC0ZZ Excision of Pelvic Region Subcutaneous Tissue and Fascia, Open Approach (ICD-10-PCS; principal; 2022-01-01 13:24)
DX: L02.211 Cutaneous abscess of abdominal wall (principal); D84.9 Immunodeficiency, unspecified; D68.59 Other primary thrombophilia; L03.90 Cellulitis, unspecified; Z80.49 Family history of malignant neoplasm of other genital organs; Z82.49 Family history of ischemic heart disease and other diseases of the circulatory system; Z87.01 Personal history of pneumonia (recurrent); J44.9 Chronic obstructive pulmonary disease, unspecified; E11.9 Type 2 diabetes mellitus without complications; Z86.14 Personal history of Methicillin resistant Staphylococcus aureus infection; I10 Essential (primary) hypertension; M32.9 Systemic lupus erythematosus, unspecified; Z79.899 Other long term (current) drug therapy; Z88.8 Allergy status to other drugs, medicaments and biological substances
CPT/HCPCS: 36415; 74176; 76705; 80053; 81025; 82948; 85025; 85610; 85730; 87070; 87076; 87205; G0378; J0330; J0690; J1170; J1200; J1815; J2175; J2250; J2405; J2704; J3010; J7030

== ENCOUNTER 2022-02-18 02:31 | Emergency (ER) | payer MEDICARE ==
[~2022-02-18] VITALS: Ht 160 cm; Wt 98.0 kg
[~2022-02-18 02:31] MED LIST changes: -ASPI-556 PO; -BUME1TAB6 PO; -BUPR-317 PO; +DICY10CA13 PO; -DIPH25CA53 PO; -DIPHEN/ATROPINE PO; +FAMO-136 PO; +FLUT1AER IH; -FLUT1DIS3 IH; +FURO20TA4 PO; -HYDROMORPHINE PO; -INSU100I21 SQ; +INSU500I SQ; -ISOS60TA77 PO; -LISI40TA9 PO; +LOSA100T58 PO; -METF-446 PO; -METO50TA18 PO; -NITR0.4T50 SL; -ONDA4TAB10 PO; -PREG75 PO; -TRAZ150T79 PO; -VENL-63 PO; -[UNRECOGNIZED DRUG - OTHER] PO
[2022-02-18 02:59] LABS: APPEARANCE,URINE CLEAR (CLEAR); BILIRUBIN,URINE NEGATIVE (NEGATIVE); COLOR,URINE YELLOW (YELLOW); GLUCOSE, URINE (UA) >=1000 mg/dL (NEGATIVE); KETONES,URINE 5 mg/dL (NEGATIVE); LEUKOCYTE ESTERASE ,URINE NEGATIVE (NEGATIVE); NITRATE,URINE NEGATIVE (NEGATIVE); OCCULT BLOOD,URINE TRACE-LYSED (NEGATIVE); PH,URINE 6.5 (5.0-8.0); PROTEIN,URINE NEGATIVE (NEGATIVE); UROBILINOGEN,URINE 0.2 mg/dL (0.2-1.0)
[2022-02-18] MEDS ORDERED: MAGNESIUM OXIDE 400 MG TABLET PO SCH (03:00)
[2022-02-18] MEDS ORDERED: KETOROLAC 15MG/ML VIAL (15MG/ML) IV ONE (03:00)
[2022-02-18] MEDS ORDERED: 0.9%NACL 1000ML 1,000 ML IV ONE (03:00)
[2022-02-18] MEDS ORDERED: FUROSEMIDE 40MG VIAL IV ONE (03:00)
[2022-02-18 03:06] LABS: BASOPHILS % (AUTO) 0.4 % (0.0-5.0); EOSINOPHILS % (AUTO) 1.4 % (0.0-8.0); HEMATOCRIT 38.9 % (36-48); LYMPHOCYTES % (AUTO) 22.5 % (21.0-51.0); MEAN CORPUSCULAR HEMOGLOBIN 23.7 pg (27.0-33.0); MEAN CORPUSCULAR HGB CONC 32.4 g/dL (32.0-36.0); MEAN CORPUSCULAR VOLUME 73.3 fL (79-99); MONOCYTES % (AUTO) 6.5 % (3.0-13.0); NEUTROPHILS % (AUTO) 68.9 % (40.0-77.0); PLATELET COUNT (AUTO) 341 K/uL (130-400); RED BLOOD CELL COUNT(AUTO) 5.31 MIL/uL (4.00-5.50); RED CELL DISTRIBUTION WIDTH 14.7 % (11.0-15.5); WHITE BLOOD COUNT (AUTO) 11.3 K/uL (4.8-10.8)
[2022-02-18 03:12] LABS: BACTERIA,URINE Rare /HPF (None Seen); RBC,URINE 0-1 /HPF (0-1); SQUAMOUS EPITHELIAL CELL,UR Few /HPF (0-2); YEAST,URINE BUDDING Few /HPF (None Seen)
[2022-02-18 03:16] LABS: CARBON DIOXIDE 21 mmol/L (21-32); CHLORIDE 99 mmol/L (101-111); GLOMERULAR FILTR. RATE CALC 65 mL/min (>60); GLUCOSE,RANDOM 375 mg/dL (70-105); SODIUM SERUM 133 mmol/L (136-145); UREA NITROGEN, BLOOD 13 mg/dL (7-18)
[2022-02-18 03:21] LABS: ALANINE AMINOTRANSFERASE 28 U/L (12-78); ALBUMIN 3.4 g/dL (3.5-5.0); ASPARTATE AMINOTRANSFERASE 6 U/L (10-37); BILIRUBIN,TOTAL 0.2 mg/dL (0.2-1.0); TOTAL PROTEIN, SERUM 7.6 g/dL (6.0-8.3)
[2022-02-18 03:23] LABS: LIPASE < 50 U/L (114-286)
[2022-02-18] MEDS ORDERED: CEFTRIAXONE 1G VIAL IVP ONE (03:30)
[2022-02-18] MEDS ORDERED: FLUCONAZOLE 100 MG TAB PO ONE (03:30)
[2022-02-18] MEDS ORDERED: ONDANSETRON 4MG INJ IVP ONE (04:00)
[2022-02-18] MEDS ORDERED: HYDROXYZINE 25 MG TABLET PO ONE (04:30)
[2022-02-18] MEDS ORDERED: METO10TA41 PO (04:55)
[2022-02-18] MEDS ORDERED: METOCLOPRAMIDE 10 MG/2 ML VIAL IVP ONE (05:00)
[2022-02-18 05:08] VITALS: BP 144/76
== END 2022-02-18 05:07 | disposition home or self-care (01) ==
LOC: EDH 02:31
DX: B37.9 Candidiasis, unspecified (principal); R11.2 Nausea with vomiting, unspecified; E11.9 Type 2 diabetes mellitus without complications; I10 Essential (primary) hypertension; M32.9 Systemic lupus erythematosus, unspecified; Z79.899 Other long term (current) drug therapy; Z88.6 Allergy status to analgesic agent; Z88.5 Allergy status to narcotic agent; Z88.8 Allergy status to other drugs, medicaments and biological substances; Z88.2 Allergy status to sulfonamides; Z88.1 Allergy status to other antibiotic agents; Z79.4 Long term (current) use of insulin; Z90.49 Acquired absence of other specified parts of digestive tract; Z90.89 Acquired absence of other organs; Z98.890 Other specified postprocedural states
CPT/HCPCS: 36415; 76856; 80053; 81001; 83690; 85025; 87088; 96361; 96374; 96375; 99284; J0696; J1885; J2405; J2765; J7030

== ENCOUNTER → 2022-09-28 | Outpatient (CLI) | payer MEDICARE ==
[~2022-09-28] MED LIST changes: +INSU100V12 SQ; +METO10TA41 PO
== END | disposition home or self-care (01) ==
LOC: RAH 10:39
PROVIDERS: ATTEND Internal Medicine Hematology & Oncology
DX: I82.622 Acute embolism and thrombosis of deep veins of left upper extremity (principal); L03.111 Cellulitis of right axilla; T78.40XA Allergy, unspecified, initial encounter; L02.411 Cutaneous abscess of right axilla; M79.604 Pain in right leg; R11.2 Nausea with vomiting, unspecified; D64.9 Anemia, unspecified; R22.32 Localized swelling, mass and lump, left upper limb; E86.0 Dehydration; L02.414 Cutaneous abscess of left upper limb
CPT/HCPCS: 93971

== ENCOUNTER 2023-03-20 19:04 | Inpatient (IN) | payer MEDICARE ==
[~2023-03-20] VITALS: Ht 160 cm; Wt 91.2 kg
[~2023-03-20 19:04] MED LIST changes: +DICY-20 PO; -DICY10CA13 PO; -LOSA100T58 PO; +LOSA100T59 PO
[2023-03-20 22:46] LABS: BASOPHILS # (AUTO) 0.03 K/uL (0.00-0.20); BASOPHILS % (AUTO) 0.3 % (0.0-5.0); EOSINOPHILS # (AUTO) 0.11 K/uL (0.00-0.70); EOSINOPHILS % (AUTO) 1.1 % (0.0-8.0); HEMATOCRIT 43.3 % (36-48); IMMATURE GRANULOCYTE ABSOLUTE 0.02 K/uL (0-1); LYMPHOCYTES # (AUTO) 2.6 K/uL (1.0-4.8); MEAN CORPUSCULAR HEMOGLOBIN 27.3 pg (27.0-33.0); MEAN CORPUSCULAR HGB CONC 33.5 g/dL (32.0-36.0); MEAN CORPUSCULAR VOLUME 81.4 fL (79-99); MONOCYTES # (AUTO) 0.6 K/uL (0.1-1.0); MONOCYTES % (AUTO) 5.8 % (3.0-13.0); NEUTROPHILS # (AUTO) 6.3 K/uL (1.8-7.7); NEUTROPHILS % (AUTO) 65.6 % (40.0-77.0); PLATELET COUNT (AUTO) 315 K/uL (130-400); RED BLOOD CELL COUNT(AUTO) 5.32 MIL/uL (4.00-5.50); RED CELL DISTRIBUTION WIDTH 12.8 % (11.0-15.5); WHITE BLOOD COUNT (AUTO) 9.7 K/uL (4.8-10.8)
[2023-03-20 22:54] LABS: CREATININE 0.8 mg/dL (0.5-1.5); POTASSIUM 3.5 mmol/L (3.5-5.1)
[2023-03-20 22:59] LABS: ALBUMIN 3.3 g/dL (3.5-5.0); BILIRUBIN,TOTAL 0.3 mg/dL (0.2-1.0); TOTAL PROTEIN, SERUM 7.5 g/dL (6.0-8.3)
[2023-03-20] MEDS ORDERED: IOHEXOL 350 MG/ML 100ML INFUS..BTL IV ONE (23:04)
[2023-03-21] VITALS (7 sets, daily range): BP systolic 120–160; BP diastolic 69–80; PULSE 81–87; RESP 17–19; O2SAT 98
[2023-03-21] MEDS: CEFAZOLIN SODIUM 2 GM VIAL IVPB SCH ×5 (00:09→23:47)
[2023-03-21] MEDS: ONDANSETRON 4MG INJ IVP PRN ×2 (00:09→13:27)
[2023-03-21] MEDS: DiphenhydrAMINE HCL 50 MG/ML VIAL IV PRN ×5 (00:09→23:47)
[2023-03-21] MEDS: MORPHINE 4 MG SYG IVP PRN ×6 (00:09→21:01)
[2023-03-21] MEDS: 0.9%NACL 1000ML 1,000 ML IV SCH ×3 (00:10→13:26)
[2023-03-21] MEDS: INSULIN HUMULIN R 100 UNIT/ML 3ML SQ SCH ×3 (12:33→21:07)
[2023-03-22] VITALS (8 sets, daily range): BP systolic 106–159; BP diastolic 47–88; PULSE 75–92; RESP 17–20; O2SAT 97–98
[2023-03-22] MEDS: 0.9%NACL 1000ML 1,000 ML IV SCH ×3 (01:11→23:46)
[2023-03-22] MEDS: MORPHINE 4 MG SYG IVP PRN ×6 (01:13→21:50)
[2023-03-22] MEDS: DiphenhydrAMINE HCL 50 MG/ML VIAL IV PRN ×4 (05:19→23:45)
[2023-03-22] MEDS: CEFAZOLIN SODIUM 2 GM VIAL IVPB SCH ×4 (05:19→23:45)
[2023-03-22] MEDS: INSULIN HUMULIN R 100 UNIT/ML 3ML SQ SCH ×4 (06:08→20:22)
[2023-03-22] MEDS: ONDANSETRON 4MG INJ IVP PRN (10:19)
[2023-03-23] VITALS (7 sets, daily range): BP systolic 99–142; BP diastolic 47–78; PULSE 74–85; RESP 17–18; O2SAT 97–98
[2023-03-23] MEDS: MORPHINE 4 MG SYG IVP PRN ×6 (02:13→21:54)
[2023-03-23] MEDS: CEFAZOLIN SODIUM 2 GM VIAL IVPB SCH ×4 (05:52→23:45)
[2023-03-23] MEDS: DiphenhydrAMINE HCL 50 MG/ML VIAL IV PRN ×4 (05:53→23:45)
[2023-03-23] MEDS: INSULIN HUMULIN R 100 UNIT/ML 3ML SQ SCH ×4 (05:53→20:12)
[2023-03-23] MEDS: ONDANSETRON 4MG INJ IVP PRN (08:02)
[2023-03-23] MEDS: 0.9%NACL 1000ML 1,000 ML IV SCH ×2 (11:29→19:46)
[2023-03-24] VITALS (7 sets, daily range): BP systolic 120–142; BP diastolic 73–89; PULSE 67–89; RESP 16–19; O2SAT 97
[2023-03-24] MEDS: MORPHINE 4 MG SYG IVP PRN ×6 (02:00→23:29)
[2023-03-24] MEDS: CEFAZOLIN SODIUM 2 GM VIAL IVPB SCH ×4 (05:46→23:29)
[2023-03-24] MEDS: DiphenhydrAMINE HCL 50 MG/ML VIAL IV PRN ×4 (05:46→23:29)
[2023-03-24] MEDS: INSULIN HUMULIN R 100 UNIT/ML 3ML SQ SCH ×4 (05:48→20:56)
[2023-03-24] MEDS: 0.9%NACL 1000ML 1,000 ML IV SCH ×3 (07:00→23:33)
[2023-03-24 12:36] LABS: HEMATOCRIT 38.1 % (36-48); MEAN CORPUSCULAR HEMOGLOBIN 27.5 pg (27.0-33.0); MEAN CORPUSCULAR HGB CONC 32.8 g/dL (32.0-36.0); MEAN CORPUSCULAR VOLUME 83.9 fL (79-99); PLATELET COUNT (AUTO) 244 K/uL (130-400); RED BLOOD CELL COUNT(AUTO) 4.54 MIL/uL (4.00-5.50); RED CELL DISTRIBUTION WIDTH 12.8 % (11.0-15.5); WHITE BLOOD COUNT (AUTO) 6.5 K/uL (4.8-10.8)
[2023-03-24 12:50] LABS: ALBUMIN 2.6 g/dL (3.5-5.0); BILIRUBIN,TOTAL 0.3 mg/dL (0.2-1.0); CREATININE 0.6 mg/dL (0.5-1.5); POTASSIUM 3.6 mmol/L (3.5-5.1); TOTAL PROTEIN, SERUM 6.2 g/dL (6.0-8.3)
[2023-03-24 14:03] LABS: EOSINOPHILS % (MANUAL) 1 % (1-6); LYMPHOCYTES % (MANUAL) 18 % (22-44); MONOCYTES % (MANUAL) 2 % (2-9); SEGMENTED NEUTROPHILS % 79 % (40-70); TOTAL CELLS COUNTED 100
[2023-03-24 14:04] LABS: MAN.DIFF COMMENT-IMPRESSION MANUAL DIFFERENTIAL; PLATELET MORPHOLOGY COMMENT ADEQUATE
[2023-03-25] VITALS (8 sets, daily range): BP systolic 106–131; BP diastolic 61–74; PULSE 75–87; RESP 18–19; O2SAT 96–97
[2023-03-25] MEDS: MORPHINE 4 MG SYG IVP PRN ×5 (03:44→21:00)
[2023-03-25] MEDS: CEFAZOLIN SODIUM 2 GM VIAL IVPB SCH ×3 (06:03→18:40)
[2023-03-25] MEDS: INSULIN HUMULIN R 100 UNIT/ML 3ML SQ SCH ×4 (06:06→20:01)
[2023-03-25] MEDS: DiphenhydrAMINE HCL 50 MG/ML VIAL IV PRN ×3 (06:06→18:40)
[2023-03-25] MEDS: 0.9%NACL 1000ML 1,000 ML IV SCH ×2 (11:26→23:00)
[2023-03-26] VITALS (7 sets, daily range): BP systolic 127–146; BP diastolic 71–80; PULSE 74–85; RESP 18–19; O2SAT 96–99
[2023-03-26] MEDS: CEFAZOLIN SODIUM 2 GM VIAL IVPB SCH ×5 (00:10→23:09)
[2023-03-26] MEDS: DiphenhydrAMINE HCL 50 MG/ML VIAL IV PRN ×5 (00:10→23:09)
[2023-03-26] MEDS: MORPHINE 4 MG SYG IVP PRN ×5 (01:57→20:05)
[2023-03-26] MEDS: INSULIN HUMULIN R 100 UNIT/ML 3ML SQ SCH ×4 (05:47→20:48)
[2023-03-26] MEDS: 0.9%NACL 1000ML 1,000 ML IV SCH ×3 (09:46→23:12)
[2023-03-27] VITALS (9 sets, daily range): BP systolic 126–143; BP diastolic 68–83; PULSE 76–80; RESP 16–20; O2SAT 96–98
[2023-03-27] MEDS: MORPHINE 4 MG SYG IVP PRN ×6 (00:03→21:05)
[2023-03-27] MEDS: INSULIN HUMULIN R 100 UNIT/ML 3ML SQ SCH ×4 (05:10→21:06)
[2023-03-27] MEDS: CEFAZOLIN SODIUM 2 GM VIAL IVPB SCH ×4 (05:22→23:45)
[2023-03-27] MEDS: DiphenhydrAMINE HCL 50 MG/ML VIAL IV PRN ×4 (05:22→23:45)
[2023-03-27] MEDS: 0.9%NACL 1000ML 1,000 ML IV SCH (10:41)
[2023-03-28] VITALS (28 sets, daily range): BP systolic 123–187; BP diastolic 67–87; PULSE 58–94; RESP 12–20; O2SAT 96–99
[2023-03-28] MEDS: 0.9%NACL 1000ML 1,000 ML IV SCH ×3 (00:05→20:25)
[2023-03-28] MEDS: MORPHINE 4 MG SYG IVP PRN ×4 (01:00→22:55)
[2023-03-28] MEDS: CEFAZOLIN SODIUM 2 GM VIAL IVPB SCH ×3 (05:53→20:21)
[2023-03-28] MEDS: DiphenhydrAMINE HCL 50 MG/ML VIAL IV PRN ×4 (05:53→20:21)
[2023-03-28] MEDS: INSULIN HUMULIN R 100 UNIT/ML 3ML SQ SCH ×4 (06:07→20:25)
[2023-03-28 06:25] LABS: SARS-CoV-2, RNA, NAAT NEGATIVE SARS CoV-2 (NEGATIVE)
[2023-03-28] MEDS: ONDANSETRON 4MG INJ IVP PRN (09:46)
[2023-03-28] MEDS ORDERED: BUPIVACAINE/PF 0.25% 30ML VIAL IJ ONE ×2 (15:50→16:40)
[2023-03-28] MEDS ORDERED: MIDAZOLAM HCL 1 MG/ML 2ML VIAL ONE (16:19)
[2023-03-28] MEDS ORDERED: FENTANYL CITRATE PF 50 MCG/1 ML 2ML VIAL ONE (16:22)
[2023-03-28] MEDS ORDERED: LIDOCAINE PF 100MG/5ML (2%) SYRINGE 5ML ONE (16:22)
[2023-03-28] MEDS ORDERED: PROPOFOL 10 MG/ML 20ML VIAL IV ONE (16:22)
[2023-03-28] MEDS ORDERED: ONDANSETRON 4MG INJ ONE (16:39)
[2023-03-28] MEDS ORDERED: DEXAMETHASONE SOD PHOSPHATE 10MG/ML 1ML VIAL ONE (16:39)
[2023-03-28] MEDS ORDERED: LIDOCAINE HCL 1% 20 ML VIAL INJ ONE (16:40)
[2023-03-28] MEDS ORDERED: MORPHINE 2 MG SYG ONE ×2 (17:42→17:59)
[2023-03-29 00:15] VITALS: BP 167/85; PULSE 77; RESP 18
[2023-03-29] MEDS: CEFAZOLIN SODIUM 2 GM VIAL IVPB SCH ×5 (01:10→23:43)
[2023-03-29] MEDS: DiphenhydrAMINE HCL 50 MG/ML VIAL IV PRN ×4 (01:10→23:43)
[2023-03-29] MEDS: MORPHINE 4 MG SYG IVP PRN ×6 (02:12→22:45)
[2023-03-29 04:08] VITALS: BP 157/72; PULSE 75; RESP 18
[2023-03-29] MEDS: INSULIN HUMULIN R 100 UNIT/ML 3ML SQ SCH ×4 (05:06→20:54)
[2023-03-29] MEDS: 0.9%NACL 1000ML 1,000 ML IV SCH (06:40)
[2023-03-29 08:00] VITALS: BP 160/78; PULSE 83; RESP 19; O2SAT 96
[2023-03-29 12:05] VITALS: BP 132/76; PULSE 81; RESP 19
[2023-03-29 16:00] VITALS: BP 156/78; PULSE 76; RESP 20
[2023-03-29 20:00] VITALS: BP 163/88; PULSE 79; RESP 18; O2SAT 98
[2023-03-29] MEDS ORDERED: LOSARTAN 100 MG TABLET ONE (22:42)
[2023-03-30] VITALS (7 sets, daily range): BP systolic 138–159; BP diastolic 72–87; PULSE 78–82; RESP 17–20; O2SAT 97
[2023-03-30] MEDS: MORPHINE 4 MG SYG IVP PRN ×5 (03:10→21:53)
[2023-03-30] MEDS: CEFAZOLIN SODIUM 2 GM VIAL IVPB SCH ×3 (05:27→17:45)
[2023-03-30] MEDS: DiphenhydrAMINE HCL 50 MG/ML VIAL IV PRN ×2 (05:27→17:47)
[2023-03-30] MEDS: 0.9%NACL 1000ML 1,000 ML IV SCH ×3 (05:27→13:00)
[2023-03-30] MEDS: INSULIN HUMULIN R 100 UNIT/ML 3ML SQ SCH ×4 (05:40→21:00)
[2023-03-30] MEDS: METOCLOPRAMIDE 10 MG TABLET PO SCH ×4 (08:32→21:39)
[2023-03-30] MEDS: LOSARTAN 100 MG TABLET PO SCH (08:32)
[2023-03-30] MEDS: INSULIN GLARGINE 100 UNITS/ML 10 ML VIAL SQ SCH ×2 (08:35→21:40)
[2023-03-30] MEDS ORDERED: BREO ELLIPTA 100-25 MCG INH IH SCH (21:00)
[2023-03-31] VITALS: BP 135/75; PULSE 87; RESP 19
[2023-03-31] MEDS: DiphenhydrAMINE HCL 50 MG/ML VIAL IV PRN ×3 (00:05→10:40)
[2023-03-31] MEDS: CEFAZOLIN SODIUM 2 GM VIAL IVPB SCH ×3 (00:24→11:22)
[2023-03-31] MEDS: MORPHINE 4 MG SYG IVP PRN ×2 (02:25→06:25)
[2023-03-31] MEDS: 0.9%NACL 1000ML 1,000 ML IV SCH (02:26)
[2023-03-31 04:00] VITALS: BP_SYST 122; BP_SYST 150; BP_DIAS 55; BP_DIAS 71; PULSE 73; PULSE 85; RESP 18
[2023-03-31] MEDS: INSULIN HUMULIN R 100 UNIT/ML 3ML SQ SCH ×2 (05:37→11:07)
[2023-03-31 08:00] VITALS: BP 142/81; PULSE 81; RESP 17
[2023-03-31] MEDS: INSULIN GLARGINE 100 UNITS/ML 10 ML VIAL SQ SCH (08:46)
[2023-03-31] MEDS: METOCLOPRAMIDE 10 MG TABLET PO SCH ×2 (08:48→12:30)
[2023-03-31] MEDS: LOSARTAN 100 MG TABLET PO SCH (08:48)
[2023-03-31 11:00] VITALS: BP 153/92; PULSE 78; RESP 17
[2023-03-31] MEDS ORDERED: MORPHINE 4 MG SYG IM PRN (11:00)
[2023-03-31] MEDS ORDERED: MORPHINE 4 MG SYG IV PRN (11:00)
[2023-03-31] MEDS ORDERED: DiphenhydrAMINE HCL 50 MG/ML VIAL IM ONE (12:30)
== END 2023-03-31 13:00 | disposition home or self-care (01) | DRG 580 ==
LOC: EDH 19:04 → DIRECT 19:05 → UNDOADMIN 20:13 → DIRECT 20:13 → 4CH 03-21 00:44 → 4BH 03-21 17:24
PROVIDERS: ADMIT Internal Medicine Hematology & Oncology; ATTEND Internal Medicine Hematology & Oncology
PROC: 0HB9XZZ Excision of Perineum Skin, External Approach (ICD-10-PCS; principal; 2023-03-28 16:19)
DX: L02.215 Cutaneous abscess of perineum (principal); D68.62 Lupus anticoagulant syndrome; D84.9 Immunodeficiency, unspecified; M32.9 Systemic lupus erythematosus, unspecified; Z20.822 Contact with and (suspected) exposure to COVID-19; E11.9 Type 2 diabetes mellitus without complications; Z79.52 Long term (current) use of systemic steroids; Z86.19 Personal history of other infectious and parasitic diseases; B95.8 Unspecified staphylococcus as the cause of diseases classified elsewhere; L72.9 Follicular cyst of the skin and subcutaneous tissue, unspecified
CPT/HCPCS: 36415; 72194; 76882; 80053; 82948; 84703; 85025; 87635; 93971; A4606; G0378; J1100; J1200; J1815; J2001; J2250; J2270; J2405; J2704; J3010; J3490; J7030; Q9967; A4216; A4222; A4223; A6204; J0690